=== PATIENT | female | born 1995 | race Two or more races ===

== ENCOUNTER 2021-07-22 13:10 | Outpatient (REF) | payer OTHER, SELFPAY ==
--- NOTE | 2021-07-22 13:22 | EEG_ITS ---
PROCEDURE: A 24 hour ambulatory EEG. The waking background activity consists of a well-defined moderate voltage, 10 to 11 hertz posterior alpha frequency, intermixed with low voltage fast frequencies anteriorly. Drowsiness is characterized by attenuation of the background activity. During sleep, symmetrical frontocentral sleep spindles, vertex sharp transients, and K complexes developed over both hemispheres. Arousals are unremarkable. Two episodes of delta frequency bifrontal waves are seen, which appear to be related to some activity or are artifactual. The patient has 1 episode of dizziness during this tracing, which is not associated with any abnormal electrical discharges. IMPRESSION: Normal 24 hour ambulatory EEG. MD VARINDER Gilbert/AGATHA / [id number]
== END 2021-07-22 13:11 | disposition home or self-care (01) ==
LOC: HO.NEURO 13:10
PROVIDERS: PCP Hospitalist; Visit Provider Psychiatry & Neurology Neurology
DX: R56.9 Unspecified convulsions (principal)
CPT/HCPCS: 95708